=== PATIENT | male | born 1975 | race Caucasian/White ===

== ENCOUNTER 2021-07-22 11:37 | Emergency (ER) | payer OTHER ==
[~2021-07-22] VITALS: Ht 170.2 cm; Wt 61.2 kg
[2021-07-22 12:01] VITALS: BP 137/79
[2021-07-22] MEDS ORDERED: SULFAMETH/TRIMETH DS 800/160MG 1 TAB PO ONE (13:05)
[2021-07-22] MEDS ORDERED: cefTRIAXone 500 MG in LIDOCAINE MPF 1% 1 ML IM ONE (13:05)
[2021-07-22] MEDS ORDERED: cefTRIAXone 500 MG VIAL ONE (14:02)
[2021-07-22] MEDS ORDERED: LIDOCAINE MPF 1% 5 ML ONE (14:02)
[2021-07-22] MEDS ORDERED: IBUP-2213 PO (14:08)
[2021-07-22] MEDS ORDERED: SULF-59 PO (14:08)
[2021-07-22] MEDS ORDERED: CEPH-588 PO (14:08)
--- NOTE | 2021-07-22 14:11 | NUR ---
45/M PRESENTS TO ED WITH C/O POSSIBLE BUG BITE TO RIGHT KNEE X3 DAYS S/P WORKING OUT IN THE YARD. PATIENT ALSO REQUESTING TO BE TESTED FOR SYPHILLIS, STATING HIS LAST PARTNER RECENTLY TESTED POSITIVE FOR SYPHILLIS, DENIES DYSURIA, DISCHARGE OR SORES ON PENIS.
--- NOTE | 2021-07-22 16:02 | NUR ---
Patient discharged with v/s stable. Written and verbal after care instructions ABOUT CELLULITIS given and explained. Patient alert, oriented and verbalized understanding of instructions. Ambulatory with steady gait. All questions addressed prior to discharge. ID band removed. Patient advised to follow up with PMD. Rx of KEFLEX, IBUPROFEN, AND BACTRIM DS given. Patient educated on indication of medication including possible reaction and side effects. Opportunity to ask questions provided and answered.
== END 2021-07-22 16:02 | disposition home or self-care (01) ==
LOC: MED 11:37
DX: L03.115 Cellulitis of right lower limb (principal); F17.210 Nicotine dependence, cigarettes, uncomplicated; F12.90 Cannabis use, unspecified, uncomplicated; Z79.1 Long term (current) use of non-steroidal anti-inflammatories (NSAID); Z79.2 Long term (current) use of antibiotics
CPT/HCPCS: 36415; 86592; 96372; 99283; J0696; J2001; 87491

== ENCOUNTER 2022-05-25 01:53 | Emergency (ER) | payer MEDICAID, OTHER ==
[~2022-05-25] VITALS: Ht 170.2 cm; Wt 68.0 kg
[~2022-05-25 01:53] MED LIST: CEPH-588 PO; IBUP-2213 PO; SULF-59 PO
[2022-05-25 03:05] VITALS: BP 118/63
--- NOTE | 2022-05-25 03:05 | NUR ---
TO BED AMBULATORY
--- NOTE | 2022-05-25 03:41 | NUR ---
DR MOSCOSO AT BEDSIDE
[2022-05-25] MEDS ORDERED: cefTRIAXone 500 MG in LIDOCAINE MPF 1% 1 ML IM ONE (03:45)
[2022-05-25] MEDS ORDERED: DOXY-690 PO ×2 (03:46→05:07)
[2022-05-25] MEDS ORDERED: cefTRIAXone 500 MG VIAL ONE (03:49)
[2022-05-25] MEDS ORDERED: LIDOCAINE MPF 1% 5 ML ONE (03:50)
--- NOTE | 2022-05-25 03:58 | NUR ---
46YR OLD MALE BIB SELF C/O PENILE DISCHARGE. PT DENIES SX DENIES PAIN. PT STATES PARTNER HAD A VAG BACTERIAL INFECTION. PT IS A&OX4 . PENDING DISPO NKDA NO MED HX
--- NOTE | 2022-05-25 05:04 | NUR ---
Patient discharged with v/s stable. Written and verbal after care instructions given and explained. Patient verbalized understanding. Ambulatory with steady gait. All questions addressed prior to discharge. Advised to follow up with PMD.
== END 2022-05-25 05:04 | disposition home or self-care (01) ==
LOC: MED 01:53
DX: N48.89 Other specified disorders of penis (principal); Z79.899 Other long term (current) drug therapy
CPT/HCPCS: 87491; 96372; 99283; J0696; J2001